=== PATIENT | female | born 1950 | race Caucasian/White ===

== ENCOUNTER → 2017-06-15 | Outpatient (CLI) | payer MEDICARE ==
--- NOTE | 2017-06-15 14:42 | CTL ---
EXAMINATION TYPE: CT Low Dose Lung DATE OF EXAM ORDERED: 06/15/2017 HISTORY: 66 year-old female lung cancer screening. Personal history of smoking. CT DLP: 83.[address] CTDI: 2.6 mGy Automated exposure control for dose reduction was used. SCREENING VISIT: One-year follow-up COMPARISON: 05/17/2016 TECHNIQUE: Low dose computed tomography scan was performed through the chest at 1 mm thick sections a nd reconstructed images in the coronal plane at [address] DIAGNOSTIC QUALITY: Satisfactory FINDINGS: The heart is normal size without pericardial effusion. Coronary vessel calcifications are present and are a marker for coronary artery disease. Mild atherosclerotic arch calcifications with conventional arch vessel branching anatomy. No thoracic lymphadenopathy identified. Scattered mild centrilobular emphysema. Mild diffuse bronchial wall thickening. No consolidation or pleural effusion. Stable 3 mm peripheral right upper lobe pulmonary nodule axial image 73. Stable 3 mm right basilar pulmonary nodule along the major fissure axial image 138. Stable 3 mm subpleural pulmonary nodule posterior left upper lobe axial image 58. Visualized upper abdomen shows no gross abnormality allowing for low dose noncontrast technique. Bones: No osseous destructive process. IMPRESSION: 1. LungRADS 2 - benign; a few stable tiny 3 mm pulmonary nodules. 2. COPD with mild emphysema. RECOMMENDATION: 1. Continue with annual low dose lung screening CT. 2. Smoking cessation.
== END | disposition home or self-care (01) ==
LOC: RADCTMAIN 12:57
PROVIDERS: ATTEND Family Medicine
DX: Z12.2 Encounter for screening for malignant neoplasm of respiratory organs (principal); J43.9 Emphysema, unspecified; R91.1 Solitary pulmonary nodule; Z87.891 Personal history of nicotine dependence

== ENCOUNTER → 2018-05-15 | Outpatient (CLI) | payer MEDICARE ==
[~2018-05-15] MED LIST: REGADENOSON 0.4 MG/5 ML SYRINGE IV ONE
--- NOTE | 2018-05-15 12:21 | NM ---
EXAMINATION TYPE: NM stress lexiscan cardiolite DATE OF EXAM: 05/15/2018 COMPARISON: NONE HISTORY: Chest pain, hypertension, and family history of coronary artery disease. Patient also descri bes prior tobacco abuse, shortness of breath and palpitations. TECHNIQUE: After the intravenous administration of 9.9 mCi Tc 99m Sestamibi - Cardiolite resting SPE CT images acquired 55 minutes post injection. The patient received 0.4mg Lexiscan, 25 mCi Tc 99m Sestamibi - Stress images obtained 30 minutes post injection FINDINGS: Review of stress and rest SPECT images demonstrates no reversible or fixed perfusion abnormality. Ga adri analysis shows normal wall motion with an estimated left ventricular ejection fraction of 63 %. T ID is within normal limits calculated at 1.04. IMPRESSION: 1. No scintigraphic evidence for reversible ischemia. 2. Estimated left ventricular ejection fraction of 63%.
--- NOTE | 2018-05-15 13:00 | EST ---
EXERCISE STRESS DATE OF SERVICE: 05/15/2018 AGE: 67 SEX: Female HT: 5'3" WT: 250 pounds PROTOCOL: Lexiscan Cardiolite STAGE: DURATION OF EXERCISE: HEART RATE REST: 75 BLOOD PRESSURE REST: 122/85 MAXIMUM HEART RATE ACHIEVED: 88 MAXIMUM BLOOD PRESSURE: 159/72 85% MPHR: 131 100% MPHR: 154 METS: INDICATIONS: Chest pain. INDICATION: Chest pain. CLINICAL INFORMATION: STRESS DATA: Pretesting physical examination showed a heart rate of 75, pressure is 122/85 mmHg. Baseline EKG showed sinus mechanism. A 0.4 mg of Lexiscan was given to the patient over 15 seconds per protocol. Max heart rate was 88 beats per minute and maximum pressure was 159/72 mmHg. Clinically the patient did not have any symptoms of chest pain or discomfort and the EKG did not show any significant ST or T-wave abnormalities concerning for ischemia. CONCLUSION: 1. Nondiagnostic electrocardiogram stress testing in response to Lexiscan. 2. Please follow up on the Cardiolite portion on separate report from radiology department. MMODL / IJN: [id number] /
== END | disposition home or self-care (01) ==
LOC: RADNMMAIN 08:21
PROVIDERS: ATTEND Family Medicine
DX: R07.9 Chest pain, unspecified (principal)
CPT/HCPCS: 93017; 78452; A9500; J2785

== ENCOUNTER → 2018-06-20 | Outpatient (CLI) | payer MEDICARE ==
--- NOTE | 2018-06-20 11:24 | CTL ---
EXAMINATION TYPE: CT Low Dose Lung DATE OF EXAM ORDERED: 06/20/2018 HISTORY: 67-year-old female history of tobacco use. Lung cancer screening CT DLP: [address] CTDI: 3.21 mGy Automated exposure control for dose reduction was used. SCREENING VISIT: One-year follow-up COMPARISON: 06/15/2017 TECHNIQUE: Low dose computed tomography scan was performed through the chest at 1 mm thick sections a nd reconstructed images in the coronal/sagittal plane at 1 mm thick sections. Additional coronal MIP reconstruction performed. CT DIAGNOSTIC QUALITY: Satisfactory FINDINGS: The heart is normal size without pericardial effusion. Mild coronary vessel calcifications are presen t. Mild atherosclerotic arch calcifications with conventional arch vessel branching anatomy. No thoracic lymphadenopathy identified. Scattered mild centrilobular emphysema. Mild diffuse bronchial wall thickening. No consolidation or p leural effusion. - Stable 3 mm peripheral right upper lobe pulmonary nodule axial image 83. - Stable 3 mm right basilar pulmonary nodule along the major fissure axial image 146. - Stable 3 mm subpleural pulmonary nodule posterior left upper lobe axial image 71. - 3 mm posterior left upper lobe pulmonary nodule, axial image 84, was present in retrospect. Visualized upper abdomen shows no gross abnormality allowing for low dose noncontrast technique. Bones: No osseous destructive process. IMPRESSION: 1. LungRADS 2 - benign; stable scattered 3 mm pulmonary nodules. 2. COPD with mild emphysema. RECOMMENDATION: 1. Continue with annual low dose lung screening CT. 2. Smoking cessation. FOLLOW UP CT CHEST RECOMMENDATION: [address] LUNG RAD: Lung-Rad 2 Benign Appearance or Behavior
== END | disposition home or self-care (01) ==
LOC: RADCTMAIN 09:36
PROVIDERS: ATTEND Family Medicine
DX: Z12.2 Encounter for screening for malignant neoplasm of respiratory organs (principal); J43.9 Emphysema, unspecified; R91.8 Other nonspecific abnormal finding of lung field; Z87.891 Personal history of nicotine dependence

== ENCOUNTER → 2019-06-30 | Outpatient (CLI) | payer MEDICARE ==
--- NOTE | 2019-07-01 08:38 | CTL ---
EXAMINATION TYPE: CT Low Dose Lung DATE OF EXAM ORDERED: 06/30/2019 HISTORY: . Lung cancer screening CT DLP: 139.[address] CTDI: 4.0 mGy Automated exposure control for dose reduction was used. SCREENING VISIT: Subsequent COMPARISON: 06/20/2018 TECHNIQUE: Low dose computed tomography scan was performed through the chest at 1 mm thick sections a nd reconstructed images in the coronal plane at [address] DIAGNOSTIC QUALITY: Satisfactory FINDINGS: LUNG NODULES: Present, detailed below: There is a 0.4 cm nodule along the periphery of the posterior medial left upper lobe. Series 4 image 66. There is a stable 0.3 cm nodule within the periphery of the right upper lobe. Series 4 image 90. A 0.3 cm area of pneumonitis change may be within the left upper lung field periphery corresponding t o the previous finding at this level, series 4 image 95. A 0.3 cm nodule is just posterior to the major fissure on the right at the periphery, series 4 image 158 was present previously and stable. LUNGS: COPD: Severity: None Fibrosis: Severity: None Lymph nodes: None Other findings: None RIGHT PLEURAL SPACE: Effusion: None Calcification: None Thickening: None Pneumothorax: None LEFT PLEURAL SPACE: Effusion: None Calcification: None Thickening: None Pneumothorax: None HEART: Heart Size: Normal Coronary calcification: Mild to moderate Pericardial effusion: None OTHER FINDINGS: Upper abdomen: Unremarkable Bony thorax: Normal Supraclavicular region: Normal Other: Ascending thoracic aorta at the level the main pulmonary artery measures 3.2 cm. The main pul monary artery at the bifurcation measures 2.4 cm. IMPRESSION: 1. Benign-appearing stable low-dose screening CT chest. FOLLOW UP CT CHEST RECOMMENDATION: Follow-up [address] thorax screening per protocol CT LUNG RAD: 2
== END | disposition home or self-care (01) ==
LOC: RADCTMAIN 08:42
PROVIDERS: ATTEND Family Medicine
DX: Z12.2 Encounter for screening for malignant neoplasm of respiratory organs (principal); Z87.891 Personal history of nicotine dependence

== ENCOUNTER → 2020-07-10 | Outpatient (CLI) | payer MEDICARE ==
--- NOTE | 2020-07-10 13:25 | CTL ---
EXAMINATION TYPE: CT Low Dose Lung DATE OF EXAM ORDERED: 07/10/2020 HISTORY: Long-term tobacco use. Lung cancer screening CT DLP: 133.[address] CTDI: 4.0 mGy Automated exposure control for dose reduction was used. SCREENING VISIT: Fourth study after baseline COMPARISON: Prior studies June 30, 2019 and older studies TECHNIQUE: Low dose computed tomography scan was performed through the chest at 1 mm thick sections a nd reconstructed images in the coronal plane at [address] DIAGNOSTIC QUALITY: Satisfactory FINDINGS: LUNG NODULES: Present, detailed below: Small micronodules redemonstrated. For reference there is 3 mm right upper lobe nodule axial image 76 unchanged back to 2016. For refere nce stable 2 mm right upper lobe nodule axial image 50 unchanged from 2016. For reference stable 3 m m right lower lobe nodule abutting the fissure axial image 141. Stable 3 to 4 mm subpleural nodule ri ght lower lobe image 160. For reference stable 4 to 5 mm posterior medial subpleural left upper lobe nodule image 59. No new or enlarging 4 mm nodules. LUNGS: COPD: Severity: Mild Fibrosis: Severity: None Lymph nodes: No greater than 1 cm Other findings: None BILATERAL PLEURAL SPACE: Effusion: None Calcification: None Thickening: None Pneumothorax: None HEART: Heart Size: Mildly enlarged Coronary calcification: Moderate Pericardial effusion: None OTHER FINDINGS: Upper abdomen: None Bony thorax: Mild to moderate multilevel spurring Supraclavicular region: None Other: None IMPRESSION: Stable scattered small nodules all measuring under 5 mm in size from 2016. No new or enla rging nodules. FOLLOW UP CT CHEST RECOMMENDATION: Consider annual low-dose lung screening CT CT LUNG RAD: Lung-Rad 2 Benign Appearance or Behavior
== END | disposition home or self-care (01) ==
LOC: RADCTMAIN 11:16
PROVIDERS: ATTEND Family Medicine
DX: Z12.2 Encounter for screening for malignant neoplasm of respiratory organs (principal); Z87.891 Personal history of nicotine dependence

== ENCOUNTER → 2021-04-23 | Outpatient (CLI) | payer MEDICARE ==
--- NOTE | 2021-04-23 11:51 | US ---
EXAMINATION TYPE: US abdomen complete DATE OF EXAM: 04/23/2021 COMPARISON: NONE CLINICAL HISTORY: R10.11 right upper quadrant pain. Difficult and limited exam due to patient body martínez bitus EXAM MEASUREMENTS: Liver Length: 16.0 cm Gallbladder Wall: 0.2 cm CBD: 0.5 cm Spleen: 10 cm Right Kidney: 9.8 x 5.0 x 4.6 cm Left Kidney: 11.0 x 4.7 x 4.9 cm Pancreas: Obscured by bowel gas, visualized portions appear wnl Liver: Coarse echotexture. Increased attenuation, decreased visualization of vessels suggestive of f atty infiltrate . 2.6 x 1.6 x 4.0 cm hypoechoic area within the liver in the gallbladder fossa most likely represents focal fatty sparing. Gallbladder: Stone visualized in neck measuring 0.8 cm Evidence for sonographic Hale's sign: No CBD: wnl as visualized, distal portion obscured by bowel gas Spleen: wnl Right Kidney: No hydronephrosis or masses seen Left Kidney: No hydronephrosis or masses seen Upper IVC: wnl Abd Aorta: Limited visualization, visualized proximal portion appear ectatic IMPRESSION: 1. The liver is echogenic with poor penetration which is nonspecific but most commonly seen with hepa tic steatosis. The hypoechoic area in the gallbladder fossa most likely represents focal fatty sparin g. 2. 0.8 cm hyperechoic focus within the gallbladder neck most likely represents cholelithiasis. Limite d visualization of the common bile duct.
== END | disposition home or self-care (01) ==
LOC: RADUSWWP 09:35
PROVIDERS: ATTEND Family Medicine
DX: R10.11 Right upper quadrant pain (principal)
CPT/HCPCS: 76700

== ENCOUNTER → 2021-08-04 | Outpatient (CLI) | payer MEDICARE ==
[2021-08-04 23:13] LABS: Basophils # (A) 0.03 X 10*3/uL (0.00-0.10); Basophils % (A) 0.3 %; Eosinophils # (A) 0.22 X 10*3/uL (0.04-0.35); Eosinophils % (A) 2.5 %; HCT 42.6 % (37.2-46.3); HGB 13.9 g/dL (12.0-15.0); Lymphocytes # (A) 3.12 X 10*3/uL (0.90-5.00); Lymphocytes % (A) 34.9 %; MCH 31.4 pg (27.0-32.0); MCHC 32.6 g/dL (32.0-37.0); MCV 96.4 fL (80.0-97.0); Mean Platelet Volume 11.7 fL (9.5-12.2); Monocytes # (A) 0.88 X 10*3/uL (0.20-1.00); Monocytes % (A) 9.8 %; Neutrophils # (A) 4.66 X 10*3/uL (1.80-7.70); Neutrophils % (A) 52.1 %; Platelet Count 231 X 10*3/uL (140-440); RBC 4.42 X 10*6/uL (4.10-5.20); RDW 13.1 % (11.5-14.5); WBC 8.95 X 10*3/uL (4.50-10.00)
[2021-08-05 00:53] LABS: African American GFR (CKD) 59.3 (60.0-200.0); Albumin 4.4 g/dL (3.8-4.9); Albumin/Globulin Ratio 1.63 (1.60-3.17); Anion Gap 14.2 mmol/L (4.00-12.00); BUN/Creat Ratio 14.55 Ratio (12.00-20.00); Carbon Dioxide 24.8 mmol/L (21.6-31.8); Globulin 2.7 g/dL (1.6-3.3); Non-African American GFR(CKD) 51.2 (60.0-200.0); Potassium 4.3 mmol/L (3.5-5.5); Total Bilirubin 0.4 mg/dL (0.30-1.20); Total Protein 7.1 g/dL (6.2-8.2)
== END | disposition home or self-care (01) ==
LOC: LABWHC1 15:29
PROVIDERS: ATTEND Surgery Plastic and Reconstructive Surgery
DX: I11.9 Hypertensive heart disease without heart failure (principal); K76.0 Fatty (change of) liver, not elsewhere classified; R94.31 Abnormal electrocardiogram [ECG] [EKG]
CPT/HCPCS: 36415; 80053; 85025; 93005

== ENCOUNTER 2022-07-30 05:51 | Day surgery (SDC) | payer MEDICARE ==
[~2022-07-30 05:51] MED LIST changes: +HEPARIN SODIUM,PORCINE/PF 5,000 UNIT/0.5 ML SYRINGE SQ PRN; -REGADENOSON 0.4 MG/5 ML SYRINGE IV ONE; +ceFAZolin 3 GM in SODIUM CHLORIDE 0.9% 100 ML IVPB PRN
[2022-07-30] MEDS ORDERED: LIDOCAINE 1% (10MG/ML) FOR IV START INTRADERMA PRN (05:54)
[2022-07-30] MEDS ORDERED: MIDAZOLAM 2 MG/2 ML VIAL IV PRN (05:54)
[2022-07-30] MEDS ORDERED: HYDROmorphone 0.5 MG/0.5 ML SYRINGE IVP PRN (05:54)
[2022-07-30] MEDS ORDERED: DEXAMETHASONE SOD PHOSPHATE 4 MG/ML 1 ML VIAL IV ONE (05:54)
[2022-07-30] MEDS ORDERED: LACTATED RINGERS 1,000 ML IV SCH (05:54)
[2022-07-30] MEDS ORDERED: ACETAMINOPHEN TAB 500 MG TAB PO STA (06:42)
--- NOTE | 2022-07-30 06:45 | P.GSHP ---
History of Present Illness H&P Date: 07/30/22 CHIEF COMPLAINT: Cholecystitis HISTORY OF PRESENT ILLNESS: The patient is a 71-year-old female who presents with history of epigastric including right upper quadrant abdominal pain. She underwent diagnostic studies for her gallbladder. Separately her clinical picture was consistent with cholecystitis. Now she presents for surgical intervention. PAST MEDICAL HISTORY: Please see list PAST SURGICAL HISTORY: Please see list MEDICATIONS: Please see list ALLERGIES: Please see list SOCIAL HISTORY: Please see list FAMILY HISTORY: Please see list REVIEW OF ORGAN SYSTEMS: CONSTITUTIONAL: No reports of fevers or chills. Has morbid obesity. HEENT: Denies any troubles with the vision or hearing. ENDOCRINE: No reports of hypothyroidism. Has diabetes. RESPIRATORY: No recent pneumonias. CARDIOVASCULAR: Denies chest pain or palpitations. Has hypertensive heart disease. GI: No blood in stools or constipation. MUSCULOSKELETAL: Has occasional joint pain including back pain. NEURO: No seizure disorders or headaches. No recent stroke. PSYCH: No depression or suicidal ideation. GENITOURINARY: No active blood in urine. No urinary hesitancy. HEMATOLOGIC: No personal or family history of DVTs or pulmonary emboli. SKIN: No skin cancer. PHYSICAL EXAM: VITAL SIGNS: Afebrile vital signs stable GENERAL: Well-developed pleasant in no acute distress. HEENT: No scleral icterus. Extraocular movements grossly intact. Moist buccal mucosa. NECK: Supple without lymphadenopathy. CHEST: Unlabored respirations. Equal bilateral excursions. CARDIOVASCULAR: Regular rate regular rhythm rhythm. Distal 2+ pulses. ABDOMEN: Soft, nondistended. Tender along the epigastrium and right upper quadrant. MUSCULOSKELETAL: No clubbing, cyanosis, or edema. NEURO: Cranial nerves II to XII within normal limits. No focal or lateralizing signs. PSYCH: Alert and oriented to person, place and time. SKIN: Well-perfused good skin turgor. ASSESSMENT: 1. Epigastric and right upper quadrant abdominal pain 2. Chronic cholecystitis 3. Symptomatic gallstones. 4. PLAN: 1. Will need a robotic cholecystectomy possible open. Benefits and risks were described. 2. Heparin for DVT prophylaxis 5000 units. 3. Antibiotic prophylaxis. 4. She is elevated risk due to morbid obesity, diabetes and hypertensive heart disease. 5. CBC, CMP, and EKG on presentation. Past Medical History Past Medical History: Diabetes Mellitus, Osteoarthritis (OA), Renal Disease, Thyroid Disorder Additional Past Medical History / Comment(s): osteoperosis,stage 3b kidney disease,vertigo, joint pain History of Any Multi-Drug Resistant Organisms: None Reported Additional Past Surgical History / Comment(s): ovarian cystectomy,oopherectomy, uterine suspension, ganglion cyst removed R wrist. Past Anesthesia/Blood Transfusion Reactions: No Reported Reaction, Motion Sickness Smoking Status: Former smoker Medications and Allergies Home Medications Medication Instructions Recorded Confirmed Type Alendronate Sodium [Fosamax] 1 tab PO WEEKLY 07/28/22 07/28/22 History Calcium Carbonate/Vitamin D3 1 tab PO DAILY 07/28/22 07/28/22 History [Calcium 500 mg Chewable Tablet] Cholecalciferol [Vitamin D3 (25 1 tab PO DAILY 07/28/22 07/28/22 History Mcg = 1000 Iu)] Levothyroxine Sodium [Synthroid] 137 mcg PO DAILY 07/28/22 07/28/22 History Simvastatin [Zocor] 20 mg PO HS 07/28/22 07/28/22 History metFORMIN HCL 500 mg PO BID 07/28/22 07/28/22 History Allergies Allergy/AdvReac Type Severity Reaction Status Date / Time nickel Allergy Intermediate Rash/Hives Verified 07/28/22 11:11 Sulfa (Sulfonamide AdvReac Intermediate Unknown Unverified 07/28/22 11:11 Antibiotics)
[2022-07-30 07:12] LABS: Glucose,Whole Blood 125 mg/dL (70-110)
[2022-07-30] MEDS: ONDANSETRON 4 MG/2 ML VIAL IVP ONE ×2 (07:15→09:33)
[2022-07-30] MEDS ORDERED: NEOSTIGMINE 1 MG/ML 10 ML VIAL ONE (07:29)
[2022-07-30] MEDS ORDERED: ROCURONIUM 10 MG/ML (5 ML VIAL) IV ONE (07:29)
[2022-07-30] MEDS ORDERED: GLYCOPYRROLATE 0.2 MG/ML 2 ML VIAL ONE (07:29)
[2022-07-30] MEDS ORDERED: SUCCINYLCHOLINE CHLORIDE 200 MG/10 ML VIAL IV ONE (07:29)
[2022-07-30] MEDS ORDERED: PROPOFOL 10 MG/ML 20 ML VIAL IV ONE (07:29)
[2022-07-30] MEDS ORDERED: fentaNYL (PF) 50 MCG/ML 2 ML AMP ONE (07:29)
[2022-07-30] MEDS ORDERED: LIDOCAINE 2% INJ 20 MG/ML (2 ML VIAL) ONE (07:29)
[2022-07-30] MEDS ORDERED: MIDAZOLAM 2 MG/2 ML VIAL ONE (07:29)
[2022-07-30] MEDS ORDERED: INDOCYANINE GREEN 25 MG VIAL IV ONE (07:29)
[2022-07-30 07:40] LABS: Basophils % (A) 0 %; Eosinophils # (A) 0.2 k/uL (0-0.7); Eosinophils % (A) 2 %; HCT 39.8 % (34.0-46.0); HGB 13.6 gm/dL (11.4-16.0); Lymphocytes % (A) 28 %; MCH 31.3 pg (25.0-35.0); MCHC 34.2 g/dL (31.0-37.0); MCV 91.5 fL (80.0-100.0); Mean Platelet Volume 9.1; Monocytes # (A) 0.7 k/uL (0-1.0); Monocytes % (A) 6 %; Neutrophils # (A) 6.4 k/uL (1.3-7.7); Neutrophils % (A) 60 %; Platelet Count 223 k/uL (150-450); RBC 4.35 m/uL (3.80-5.40); RDW 13.2 % (11.5-15.5); WBC 10.8 k/uL (3.8-10.6)
[2022-07-30] MEDS ORDERED: INDOCYANINE GREEN 25 MG VIAL IV STA (07:43)
[2022-07-30 07:48] LABS: INR 0.9 (<1.2); Prothrombin Time 9.9 sec (9.0-12.0)
[2022-07-30] MEDS ORDERED: LIDOCAINE 1%-EPI 1:100,000 20 ML VIAL SQ ONE (07:54)
[2022-07-30 08:07] LABS: Calcium 9.3 mg/dL (8.4-10.2); Total Bilirubin 0.8 mg/dL (0.2-1.3)
[2022-07-30 08:08] LABS: Albumin 4.6 g/dL (3.5-5.0); Total Protein 7.3 g/dL (6.3-8.2)
[2022-07-30] MEDS ORDERED: KETOROLAC 15 MG/ML 1 ML VIAL IVP PRN (08:31)
[2022-07-30] MEDS ORDERED: SIMETHICONE 80 MG CHEWABLE PO PRN (08:31)
--- NOTE | 2022-07-30 08:44 | P.OP ---
Date of Procedure: 07/30/22 Description of Procedure: SURGEON: KATHY HEADLEY MD PREOPERATIVE DIAGNOSES: 1. Symptomatic gallstone 2. Right upper quadrant abdominal pain 3. Morbid obesity due to excess calories, BMI 40.8 4. Hypertensive heart disease 5. Osteoporosis 6. Diabetes type 2 with nephropathy 7. Hypothyroidism POSTOPERATIVE DIAGNOSES: 1. Symptomatic gallstone 2. Right upper quadrant abdominal pain 3. Morbid obesity due to excess calories, BMI 40.8 4. Hypertensive heart disease 5. Osteoporosis 6. Diabetes type 2 with nephropathy 7. Hypothyroidism 8. Chronic cholecystitis 9. Peritoneal adhesions, right upper quadrant 10. Hepatomegaly with fatty liver disease OPERATION: 1. Robotic-assisted da Yeny Xi laparoscopic cholecystectomy, multiport with FIREFLY 2. Robotic-assisted da Yeny Xi laparoscopic lysis of adhesions ESTIMATED BLOOD LOSS: 5 mL. SPECIMENS REMOVED: Gallbladder. COMPLICATIONS: None. OPERATIVE FINDINGS: 1. Gallbladder wall thickening consistent with features of chronic cholecystitis 2. Severe hepatomegaly with fatty liver disease adding complexity to the case 3. Peritoneal adhesions right upper quadrant lysed INDICATIONS: The patient is a 71-year-old female who presents with symptomatic gallstones. Robotic assisted laparoscopic approach was described. Benefits and risks of the procedure including but not limited to bleeding, infection, injury to the biliary tree was described. Informed consent was obtained. DESCRIPTION OF PROCEDURE: Patient was brought to the operating room, placed in supine position. After general induction, the abdomen had been prepped and draped in standard sterile fashion. The robotic da Yeny XI system was primed. After a timeout protocol was performed, the patient had been prepped and draped in standard sterile fashion. The patient was injected with indocyanine green. A 5 mm 0 degrees laparoscopic trocar entry was performed along the left upper quadrant. The abdomen insufflated to 15 mmHg pressure which was tolerated well. Diagnostic laparoscopy demonstrated no injury to bowel viscera or mesentery. The liver surface was unremarkable. Next, two 8 mm robotic ports were placed along the right upper abdomen. The camera 8-mm port was maintained along the epigastrium. Another 8 mm port was placed along the left upper abdominal wall after exchanging the 5 mm port. Please note that the ports were placed at least 10 to 15 cm away from the target anatomy of the gallbladder. The robot was docked along the left lateral abdomen. The patient was repositioned in reverse Trendelenburg position. Using a grasper for arm 3, a grasper for arm 4, including hook cautery for arm 1, the robotic system was docked and primed as described. Instruments were interchanged by the acute care assistant including hook cautery, Bovie cautery and clip appliers. I had sat at the console. Right upper quadrant peritoneal adhesions were identified and lysed. Additionally, severe hepatomegaly with fatty liver disease was found adding complexity to the case. Dome down technique was performed starting from the fun dus towards the infundibulum to prevent injury to the cystic structures due to severe fatty tissue obscuring cystic duct and common bile duct. The cystic lymph node was identified and dissected distally with identification of the cystic duct. Next attention was brought to the infundibulum and cystic structures. The infundibulum and cystic duct were dissected free from surrounding tissues. The cystic duct was isolated. FIREFLY was used to identify the cystic artery and cystic structures. A critical view of safety was obtained. Large PLASTIC clips were used throughout the entire case. Using a clip customer retention representative, 2 clips were placed at the junction of the infundibulum and cystic duct. The cystic duct was divided between clips. Next, the cystic artery was similarly clipped and cauterized. Electro-Bovie cautery was used to remove the gallbladder from the hepatic fossa. Hemostasis was checked and found to be adequate. The robot was undocked. I re-scrubbed into the case. Using a 10 mm Endo Catch bag via the left upper quadrant incision, the specimen was removed from the abdominal cavity. All pneumoperitoneum instruments were evacuated from the abdominal cavity. The incisions were reapproximated using 4-0 Monocryl in an interrupted subcuticular fashion. Fascial defects were less than 8 mm in size. Please note along the trocar sites, local anesthetic was placed as a field block prior to insertion of all instruments. Liquid glue was applied to the skin. At the end of the procedure needle, sponge, and instrument count had been verified correct by the surgical first assistant. The patient was transferred to postanesthesia care unit in stable condition. Intraoperative films were shared with the patient's family. Plan - Discharge Summary Discharge Rx Participant: No New Discharge Prescriptions: New Ibuprofen [Motrin] 600 mg PO Q8HR PRN #30 tab PRN Reason: Pain Acetaminophen Tab [Tylenol Tab] 1,000 mg PO Q6HR PRN #30 tablet PRN Reason: Pain Simethicone [Gas-X] 125 mg PO AC-TID PRN #20 capsule PRN Reason: Pain Continue Simvastatin [Zocor] 20 mg PO HS Levothyroxine Sodium [Synthroid] 137 mcg PO DAILY metFORMIN HCL 500 mg PO BID Cholecalciferol [Vitamin D3 (25 Mcg = 1000 Iu)] 1 tab PO DAILY Calcium Carbonate/Vitamin D3 [Calcium 500 mg Chewable Tablet] 1 tab PO DAILY Alendronate Sodium [Fosamax] 1 tab PO WEEKLY Discharge Medication List Alendronate Sodium [Fosamax] 1 tab PO WEEKLY 07/28/22 [History] Calcium Carbonate/Vitamin D3 [Calcium 500 mg Chewable Tablet] 1 tab PO DAILY 07/28/22 [History] Cholecalciferol [Vitamin D3 (25 Mcg = 1000 Iu)] 1 tab PO DAILY 07/28/22 [History] Levothyroxine Sodium [Synthroid] 137 mcg PO DAILY 07/28/22 [History] Simvastatin [Zocor] 20 mg PO HS 07/28/22 [History] metFORMIN HCL 500 mg PO BID 07/28/22 [History] Acetaminophen Tab [Tylenol Tab] 1,000 mg PO Q6HR PRN #30 tablet 07/30/22 [Rx] Ibuprofen [Motrin] 600 mg PO Q8HR PRN #30 tab 07/30/22 [Rx] Simethicone [Gas-X] 125 mg PO AC-TID PRN #20 capsule 07/30/22 [Rx] Follow up Appointment(s)/Referral(s): Kathy Headley MD [STAFF PHYSICIAN] - 07/30/22 (telehealth) Patient Instructions/Handouts: Laparoscopic Cholecystectomy (DC), Low Fat Diet (DC), *[facility]gery [facility] - Managing Your Pain After Surgery Without Opioids Activity/Diet/Wound Care/Special Instructions: Recommend low-fat diet for the next 2 days. No lifting over 10 pounds in 2 weeks until Aug 13. January shower. No bath tub soaks for two weeks until Aug 13. Diet as tolerated. Use Tylenol, simethicone and ibuprofen or Aleve scheduled for the next 24-48 hours for best pain relief. Use ice along incisions for today to prevent swelling. Discharge Disposition: HOME SELF-CARE
[2022-07-30 08:46] VITALS: TEMP 97.2
[2022-07-30 08:54] VITALS: RESP 16
[2022-07-30] MEDS ORDERED: METOCLOPRAMIDE 5 MG/ML 2 ML VIAL IVP ONE (09:50)
[2022-07-30 11:46] VITALS: BP 137/68; PULSE 68
== END 2022-07-30 12:33 | disposition home or self-care (01) ==
LOC: OR 05:51
PROVIDERS: ATTEND Surgery Plastic and Reconstructive Surgery
DX: K80.10 Calculus of gallbladder with chronic cholecystitis without obstruction (principal); I13.10 Hypertensive heart and chronic kidney disease without heart failure, with stage 1 through stage 4 chronic kidney disease, or unspecified chronic kidney disease; E66.01 Morbid (severe) obesity due to excess calories; E11.21 Type 2 diabetes mellitus with diabetic nephropathy; E03.9 Hypothyroidism, unspecified; M81.0 Age-related osteoporosis without current pathological fracture; K66.0 Peritoneal adhesions (postprocedural) (postinfection); K76.0 Fatty (change of) liver, not elsewhere classified; R16.0 Hepatomegaly, not elsewhere classified; R42 Dizziness and giddiness; N18.32 Chronic kidney disease, stage 3b; Z68.41 Body mass index [BMI] 40.0-44.9, adult; M25.50 Pain in unspecified joint; Z87.891 Personal history of nicotine dependence; Z79.84 Long term (current) use of oral hypoglycemic drugs; Z79.899 Other long term (current) drug therapy; Z79.890 Hormone replacement therapy; Z88.2 Allergy status to sulfonamides; Z91.048 Other nonmedicinal substance allergy status
CPT/HCPCS: 80053; 85025; 85610; 47562; J2250; J0330; J1100; J2710; J2765; J0690; J2405; J3010; J1885; J2704; J1790; J1644; J2001; 88304